=== PATIENT | male | born 1985 | race Caucasian/White ===

== ENCOUNTER 2017-06-16 12:22 | Emergency (ER) | payer SELFPAY ==
[~2017-06-16] VITALS: Ht 170.2 cm; Wt 83.9 kg
[2017-06-16] MEDS ORDERED: LIDOCAINE 1%-EPI 1:100,000 50 ML VIAL IJ ONE ×2 (12:50→13:00)
[2017-06-16 13:04] VITALS: BP 154/100
== END 2017-06-16 14:02 | disposition home or self-care (01) ==
LOC: ER 12:23
DX: S61.412A Laceration without foreign body of left hand, initial encounter (principal); W25.XXXA Contact with sharp glass, initial encounter; Y93.89 Activity, other specified; Y92.89 Other specified places as the place of occurrence of the external cause; Y99.8 Other external cause status
CPT/HCPCS: 12001; 73130; 99284; A4606; A6402 ×2; A6403; J3490; Z7610

== ENCOUNTER 2017-06-18 14:24 | Emergency (ER) | payer SELFPAY ==
[~2017-06-18] VITALS: Ht 170.2 cm; Wt 84.4 kg
[2017-06-18 14:24] VITALS: BP 160/85
== END 2017-06-18 14:46 | disposition home or self-care (01) ==
LOC: ER 14:28
DX: S61.412D Laceration without foreign body of left hand, subsequent encounter (principal); X58.XXXD Exposure to other specified factors, subsequent encounter
CPT/HCPCS: 99283; A4606; Z7610